=== PATIENT | female | born 1975 | race Two or more races ===

== ENCOUNTER 2017-11-29 06:08 | Emergency (ER) | payer OTHER ==
[~2017-11-29] VITALS: Ht 157.5 cm; Wt 70.3 kg
[~2017-11-29 06:08] MED LIST: KETO10TA2 PO
== END 2017-11-29 10:36 | disposition home or self-care (01) ==
LOC: ER 06:08
DX: M75.52 Bursitis of left shoulder (principal)

== ENCOUNTER 2019-02-19 21:34 | Emergency (ER) | payer OTHER ==
[~2019-02-19] VITALS: Ht 157.5 cm; Wt 72.6 kg
== END 2019-02-19 23:25 | disposition home or self-care (01) ==
LOC: ER 21:34
DX: M25.571 Pain in right ankle and joints of right foot (principal)

== ENCOUNTER 2020-05-03 11:49 | Emergency (ER) | payer OTHER ==
[~2020-05-03] VITALS: Ht 157.5 cm; Wt 73.5 kg
== END 2020-05-03 18:25 | disposition home or self-care (01) ==
LOC: ER 11:49
DX: R42 Dizziness and giddiness (principal)

== ENCOUNTER 2020-07-04 23:56 | Emergency (ER) | payer OTHER ==
[~2020-07-04] VITALS: Ht 157.5 cm; Wt 73.5 kg
== END 2020-07-05 01:49 | disposition home or self-care (01) ==
LOC: ER 23:56
DX: M50.30 Other cervical disc degeneration, unspecified cervical region (principal); M51.36 Other intervertebral disc degeneration, lumbar region

== ENCOUNTER 2020-10-08 17:42 | Emergency (ER) | payer OTHER ==
[~2020-10-08] VITALS: Ht 157.5 cm; Wt 76.2 kg
[2020-10-08] MEDS ORDERED: KETO10TA2 PO (20:12)
[2020-10-08] MEDS ORDERED: SKELAXIN800 MG PO (20:12)
[2020-10-08] MEDS ORDERED: HORIZANT300 MG PO (20:12)
== END 2020-10-08 20:29 | disposition home or self-care (01) ==
LOC: ER 17:42
DX: M50.30 Other cervical disc degeneration, unspecified cervical region (principal); M54.5 Low back pain; M79.621 Pain in right upper arm

== ENCOUNTER 2020-11-19 23:22 | Emergency (ER) | payer OTHER ==
[~2020-11-19] VITALS: Ht 157.5 cm; Wt 76.2 kg
[~2020-11-19 23:22] MED LIST changes: +HORIZANT300 MG PO; +SKELAXIN800 MG PO
[2020-11-20] MEDS ORDERED: PEPCID40 MG PO (04:37)
[2020-11-20] MEDS ORDERED: PROTONIX40 MG PO (04:37)
== END 2020-11-20 04:57 | disposition home or self-care (01) ==
LOC: ER 23:22
DX: K29.70 Gastritis, unspecified, without bleeding (principal)

== ENCOUNTER 2020-11-20 17:51 | Emergency (ER) | payer OTHER ==
[~2020-11-20] VITALS: Ht 157.5 cm; Wt 76.2 kg
[~2020-11-20 17:51] MED LIST changes: +PEPCID40 MG PO; +PROTONIX40 MG PO
== END 2020-11-20 21:07 | disposition home or self-care (01) ==
LOC: ER 17:51
DX: M94.0 Chondrocostal junction syndrome [Tietze] (principal); R07.89 Other chest pain

== ENCOUNTER 2021-04-30 01:29 | Emergency (ER) | payer OTHER ==
[~2021-04-30] VITALS: Ht 157.5 cm; Wt 76.2 kg
[2021-04-30] MEDS ORDERED: PROTONIX40 MG PO (07:31)
[2021-04-30] MEDS ORDERED: ZOFRAN8 MG PO (07:31)
[2021-04-30] MEDS ORDERED: PEPCID40 MG PO (07:31)
== END 2021-04-30 07:39 ==
LOC: ER 01:29
DX: K29.60 Other gastritis without bleeding (principal)

== ENCOUNTER 2021-07-30 12:23 | Emergency (ER) | payer OTHER ==
[~2021-07-30] VITALS: Ht 157.5 cm; Wt 73.5 kg
[~2021-07-30 12:23] MED LIST changes: +ZOFRAN8 MG PO
[2021-07-30] MEDS ORDERED: PROMETH-CODEIN 65 ML PO (16:48)
[2021-07-30] MEDS ORDERED: ZITHROMAX500 MG PO (16:48)
== END 2021-07-30 17:03 ==
LOC: ER 12:23
DX: U07.1 COVID-19 (principal); J98.01 Acute bronchospasm

== ENCOUNTER 2021-08-09 00:11 | Emergency (ER) | payer OTHER ==
[~2021-08-09] VITALS: Ht 157.5 cm; Wt 72.6 kg
[~2021-08-09 00:11] MED LIST changes: +PROMETH-CODEIN 65 ML PO; +ZITHROMAX500 MG PO
[2021-08-09] MEDS ORDERED: KETO10TA2 PO (03:30)
[2021-08-09] MEDS ORDERED: NORFLEX100MG PO (03:30)
== END 2021-08-09 03:52 | disposition home or self-care (01) ==
LOC: ER 00:11
DX: D50.8 Other iron deficiency anemias (principal)

== ENCOUNTER 2021-08-13 06:12 | Emergency (ER) | payer OTHER ==
[~2021-08-13] VITALS: Ht 157.5 cm; Wt 72.6 kg
[~2021-08-13 06:12] MED LIST changes: +NORFLEX100MG PO
[2021-08-13] MEDS ORDERED: TESSALON PERLE100 M1 PO (11:44)
[2021-08-13] MEDS ORDERED: OSEL75CA PO (11:44)
[2021-08-13] MEDS ORDERED: IPRAT-ALBUT 0.5-3 ML IH (11:44)
[2021-08-13] MEDS ORDERED: BUDESONIDE0.5 MG/2 M IH (11:44)
== END 2021-08-13 13:30 ==
LOC: ER 06:12
DX: J10.1 Influenza due to other identified influenza virus with other respiratory manifestations (principal); J06.9 Acute upper respiratory infection, unspecified; Z03.818 Encounter for observation for suspected exposure to other biological agents ruled out

== ENCOUNTER 2021-11-22 02:24 | Emergency (ER) | payer OTHER ==
[~2021-11-22] VITALS: Ht 157.5 cm; Wt 73.5 kg
[~2021-11-22 02:24] MED LIST changes: +BUDESONIDE0.5 MG/2 M IH; +IPRAT-ALBUT 0.5-3 ML IH; +OSEL75CA PO; +TESSALON PERLE100 M1 PO
[2021-11-22] MEDS ORDERED: ACETAMINOPHEN650 M2 PO (06:28)
[2021-11-22] MEDS ORDERED: OSEL75CA PO (06:28)
[2021-11-22] MEDS ORDERED: MUCINEX DM ER1 EAC1 PO (06:28)
== END 2021-11-22 06:47 | disposition home or self-care (01) ==
LOC: ER 02:24
DX: J11.1 Influenza due to unidentified influenza virus with other respiratory manifestations (principal); Z88.0 Allergy status to penicillin; Z20.822 Contact with and (suspected) exposure to COVID-19

== ENCOUNTER 2021-11-25 06:44 | Emergency (ER) | payer OTHER ==
[~2021-11-25] VITALS: Ht 157.5 cm; Wt 73.5 kg
[~2021-11-25 06:44] MED LIST changes: +ACETAMINOPHEN650 M2 PO; +MUCINEX DM ER1 EAC1 PO
== END 2021-11-25 09:40 | disposition home or self-care (01) ==
LOC: ER 06:44
DX: J11.1 Influenza due to unidentified influenza virus with other respiratory manifestations (principal)

== ENCOUNTER 2022-01-16 12:27 | Emergency (ER) | payer OTHER ==
[~2022-01-16] VITALS: Ht 157.5 cm; Wt 74.4 kg
[~2022-01-16 12:27] MED LIST changes: +ACETAMINOPHEN650 M2
[2022-01-16] MEDS ORDERED: BUTALB-ASPIRIN1 EACH PO (18:05)
[2022-01-16] MEDS ORDERED: NORFLEX100MG PO (18:05)
== END 2022-01-16 19:19 | disposition home or self-care (01) ==
LOC: ER 12:27
DX: M62.830 Muscle spasm of back (principal)

== ENCOUNTER 2022-03-22 11:21 | Emergency (ER) | payer OTHER ==
[~2022-03-22] VITALS: Ht 157.5 cm; Wt 74.8 kg
[~2022-03-22 11:21] MED LIST changes: +BUTALB-ASPIRIN1 EACH PO
== END 2022-03-22 17:39 | disposition home or self-care (01) ==
LOC: ER 11:21
DX: M79.672 Pain in left foot (principal); R60.9 Edema, unspecified; Z88.0 Allergy status to penicillin

== ENCOUNTER 2022-04-08 10:13 | Emergency (ER) | payer OTHER ==
[~2022-04-08] VITALS: Ht 157.5 cm; Wt 76.2 kg
== END 2022-04-08 12:19 | disposition home or self-care (01) ==
LOC: ER 10:13
DX: H66.91 Otitis media, unspecified, right ear (principal); Z88.0 Allergy status to penicillin

== ENCOUNTER 2022-04-19 08:29 | Emergency (ER) | payer OTHER ==
[~2022-04-19] VITALS: Ht 157.5 cm; Wt 76.2 kg
[2022-04-19] MEDS ORDERED: ULTRAM50 MG PO (08:38)
[2022-04-19] MEDS ORDERED: NORFLEX100MG PO (11:41)
[2022-04-19] MEDS ORDERED: CLEOCIN HCL300 MG PO (11:41)
== END 2022-04-19 12:01 | disposition home or self-care (01) ==
LOC: ER 08:29
DX: L03.116 Cellulitis of left lower limb (principal); M25.472 Effusion, left ankle; Z88.0 Allergy status to penicillin

== ENCOUNTER 2022-07-06 09:38 | Emergency (ER) | payer OTHER ==
[~2022-07-06] VITALS: Ht 157.5 cm; Wt 76.7 kg
[~2022-07-06 09:38] MED LIST changes: +CLEOCIN HCL300 MG PO; +ULTRAM50 MG PO
[2022-07-06] MEDS ORDERED: MILLIPRED5 MG PO (09:59)
[2022-07-06] MEDS ORDERED: METHOTREXA25 MG/1 M5 IJ (09:59)
[2022-07-06] MEDS ORDERED: ZITHROMAX500 MG PO (12:31)
[2022-07-06] MEDS ORDERED: MEDROLPACK PO (12:31)
== END 2022-07-06 13:02 | disposition home or self-care (01) ==
LOC: ER 09:38
DX: U07.1 COVID-19 (principal); Z88.0 Allergy status to penicillin

== ENCOUNTER 2023-04-12 13:57 | Emergency (ER) | payer OTHER ==
[~2023-04-12] VITALS: Ht 157.5 cm; Wt 77.1 kg
[~2023-04-12 13:57] MED LIST changes: +MEDROLPACK PO; +METHOTREXA25 MG/1 M5 IJ; +MILLIPRED5 MG PO
[2023-04-12] MEDS ORDERED: TREXALL5 MG IM (14:38)
[2023-04-12] MEDS ORDERED: PAXLOVID 300-11 EACH PO (17:39)
== END 2023-04-12 17:55 | disposition home or self-care (01) ==
LOC: ER 13:57
DX: U07.1 COVID-19 (principal); B34.8 Other viral infections of unspecified site

== ENCOUNTER 2023-05-24 04:11 | Emergency (ER) | payer OTHER ==
[~2023-05-24] VITALS: Ht 157.5 cm; Wt 77.1 kg
[~2023-05-24 04:11] MED LIST changes: +PAXLOVID 300-11 EACH PO; +TREXALL5 MG IM
== END 2023-05-24 06:04 | disposition home or self-care (01) ==
LOC: ER 04:11
DX: M13.0 Polyarthritis, unspecified (principal); Z88.0 Allergy status to penicillin

== ENCOUNTER → 2024-05-14 | Emergency (ER) | payer OTHER ==
[~2024-05-14] VITALS: Ht 157.5 cm; Wt 75.3 kg
[~2024-05-14] MED LIST changes: +METRONIDAZOLE500 MG PO
== END | disposition left against medical advice (07) ==
LOC: ER 00:51
DX: Z53.21 Procedure and treatment not carried out due to patient leaving prior to being seen by health care provider (principal)